=== PATIENT | female | born 1950 | race Caucasian/White ===

== ENCOUNTER → 2016-10-28 | Outpatient (CLI) | payer OTHER ==
[~2016-10-28] MED LIST: AMLODIPINE BESYL5 MG PO; METHIMAZOLE5 MG PO; PRILOSEC PO; SIMVASTATIN40 MG PO
--- NOTE | ~2016-10-28 | HM ---
Unit #: [id number] #: [id number] Patient: CHANCE TSEARNS [id number] [address] [address] [id number] O MR#: [id number] NAME: CHANCE STEARNS. : 1950 SEX: F STUDY DATE/TIME: 10/31/2016 UNIT: CE ROOM: STUDY DESCRIPTION: Holter monitor Attending Physician: Edmund Wood M.D. Referring Physician: Edmund Wood M.D. Primary Care Physician: Bryce Purcell M.D. CARDIOLOGY REPORT EXAM Holter monitor FINDINGS 1. Underlying rhythm is normal sinus. Minimal recorded heart rate is 56, maximal recorded heart rate is 105, with an average heart rate of 76 beats per minute. 2. Occasional PVCs are noted, unifocal in origin, with eight premature atrial couplets and no runs or ventricular tachycardia. 3. Very rate premature atrial contractions are noted with a total of 37 beats counted in 24 hours. There is a three-beat run of supraventricular tachycardia most likely sinus at a rate of 122 beats per minute, spontaneously converting to a slower sinus rate at 80 beats per minute. 4. There is no AV block, sinus arrest or sinus pause. 5. The patient did not maintain a symptom or activity diary. IMPRESSION Twenty-four ambulatory monitoring is within normal limits with rare premature ventricular contractions. Dictated by... Edy Kaminski/reymundo TD: 10/31/2016 16:40 JOB #: [id number] CARDIOLOGY REPORT Page 1 of 1 X Jesus Ortiz MD HOLTER MONITOR REPORT
== END | disposition home or self-care (01) ==
LOC: CEKG 16:43
DX: R00.2 Palpitations (principal); E05.90 Thyrotoxicosis, unspecified without thyrotoxic crisis or storm; I49.3 Ventricular premature depolarization
CPT/HCPCS: 93225; 93226

== ENCOUNTER → 2016-12-17 | Outpatient (CLI) | payer OTHER ==
--- NOTE | ~2016-12-17 | OR ---
Unit #: [id number] #: [id number] Patient: CHANCE STEARNS [id number] [address] [address] [id number] O MR#: [id number] NAME: CHANCE STEARNS ROOM: Date of Procedure: 12/17/2016 Admission Date: 12/17/2016 Surgeon: Gigi Gomez M.D. : 1950 Attending Physician: Gigi Gomez M.D. Referring Physician: Gigi Gomez M.D. Primary Care Physician: Bryce Purcell M.D. OPERATIVE REPORT PRIMARY CARE PHYSICIAN Bryce Purcell M.D. PREOPERATIVE DIAGNOSES The patient has presented with right upper quadrant abdominal pain, atypical chest pain, dyspepsia, and heartburn. PROCEDURES PERFORMED Upper gastrointestinal endoscopy and biopsy. POSTOPERATIVE DIAGNOSES Mild prepyloric antral gastritis. This was in the form of prepyloric antral erythema. Otherwise, examination was normal up to third part of duodenum. A biopsy was obtained from the antrum for CLOtest. RECOMMENDATIONS The patient will be followed up in the office in 4 to 6 weeks' time along with results of the antrum biopsies taken today. SEDATION USED MAC. DESCRIPTION OF PROCEDURE Following detailed explanation of the potential risks and complications of an upper endoscopy, namely perforation, bleeding, and complication related to sedation, the patient was brought to GI lab and laid in the left lateral decubitus position. Lubricated tip of the Olympus video upper endoscope was passed through the bite block into the proximal esophagus under direct vision. The entire esophageal mucosa was examined and appeared normal. Z-line was nicely demarcated, there being no esophagitis or hiatus hernia. The scope was then advanced into the gastric cavity and the latter was insufflated. Mucosa of the fundus, body, and antrum was examined. The patient was noted to have mild prepyloric antral erythema. Pylorus was intubated with visualization of the normal duodenal bulb and second and third part of the duodenum. Upon withdrawal and retroflexion, incisura, cardia, and greater curve was examined and a biopsy was obtained from the antrum for CLOtest. The scope was withdrawn in the distal esophagus. The entire esophageal mucosa was examined all the way up to pharynx. No additional findings were noted. The patient tolerated the procedure without any postprocedure complications. Unit #: [id number] #: [id number] Patient: CHANCE STEARNS Dictated by..Edy Bobo/bridgette TD: 12/17/2016 12:45 JOB #: [id number] OPERATIVE REPORT Page 1 of 1 X Gigi Gomez MD PROCEDURE OPERATIVE NOTE
--- NOTE | ~2016-12-17 | US6 ---
[facility] A Service of [facility] [place] RADIOLOGY TEXT RESULTS PATIENT: CHANCE STEARNS LOCATION: CGUS : [birth year] UNIT #: [id number] AGE: [address]: Gigi Gomez MD SEX: F ORDER DR: [id number] [facility] [address] [facility] [place], [place] [address] [id number] O MR#: [id number] Acc #: [id number] NAME: CHANCE STEARNS. : 1950 SEX: F STUDY DATE/TIME: 12/17/2016 9:04 UNIT: CGUS ROOM: STUDY DESCRIPTION: US Abdominal Limited Attending Physician: Gigi Gomez M.D. Referring Physician: Gigi Gomez M.D. Ordering Physician: Gigi Gomez M.D. Primary Care Physician: Bryce Purcell M.D. MEDICAL IMAGING REPORT This report is preliminary unless electronic signature is present EXAM Right upper quadrant ultrasound, 12/17/2016 COMPARISON None HISTORY Right upper quadrant abdominal pain for 1 month. FINDINGS Limited survey images of the pancreas are normal. Hepatic parenchymal echotexture is normal without evidence of intrahepatic biliary ductal dilatation or mass. The right kidney is normal in size and echotexture without solid mass, calcification or hydronephrosis. The gallbladder is normal without stone, wall thickening, or pericholecystic fluid. The extrahepatic common duct is normal in caliber. Limited survey images of the pancreas are unremarkable. IMPRESSION Normal negative right upper quadrant ultrasound. Dictated by... Amador Hebert M.D. THIS IS AN ELECTRONICALLY VERIFIED REPORT Amador Hebert M.D. at 12/21/2016 12:13 PM ASUNCION/elma TD: 12/17/2016 11:41 JOB #: [id number] MEDICAL IMAGING REPORT [facility] A Service of [facility] [place] RADIOLOGY TEXT RESULTS PATIENT: CHANCE STEARNS LOCATION: CGUS : [birth year] UNIT #: [id number] AGE: [address]: Gigi Gomez MD SEX: F ORDER DR: Page 1 of 1 COPY
== END | disposition home or self-care (01) ==
LOC: CGUS 08:29
DX: R10.11 Right upper quadrant pain (principal); R10.13 Epigastric pain; R07.89 Other chest pain
CPT/HCPCS: 76705

== ENCOUNTER → 2016-12-17 | Day surgery (SDC) | payer OTHER | END | disposition home or self-care (01) | LOC: COPS 08:30 | DX: K29.70 Gastritis, unspecified, without bleeding (principal); E03.9 Hypothyroidism, unspecified; K21.9 Gastro-esophageal reflux disease without esophagitis; Z87.891 Personal history of nicotine dependence; Z88.8 Allergy status to other drugs, medicaments and biological substances; Z79.899 Other long term (current) drug therapy; Z98.890 Other specified postprocedural states | CPT/HCPCS: 87077 ==